=== PATIENT | male | born 1965 | race African-American/Black ===

== ENCOUNTER 2017-02-17 21:54 | Inpatient (IN) | payer OTHER, SELFPAY ==
[~2017-02-17] VITALS: Ht 182.9 cm; Wt 90.1 kg
[2017-02-17 22:29] LABS: ASPARTATE AMINO TRANSFERASE 40 U/L (15-37); BLOOD UREA NITROGEN 11 mg/dL (7-18)
[2017-02-17 22:35] LABS: IS PT STATUS REG ER OR PRE ER? YES
[2017-02-17] MEDS ORDERED: ASPIRIN 81 MG TABLET CHEW ONE (22:41)
[2017-02-17] MEDS ORDERED: NITROGLYCERIN OINT 2%, 1GM TP ONE ×2 (23:00→23:15)
[2017-02-17] MEDS ORDERED: ASPIRIN 81 MG TABLET CHEW PO ONE (23:00)
[2017-02-17] MEDS ORDERED: HEPARIN 5,000 UNITS/ML, 1ML IV PRN (23:30)
[2017-02-17] MEDS ORDERED: HEPARIN 25,000 UNITS/500ML PMX 500 ML IV PRN (23:30)
[2017-02-17] MEDS ORDERED: MORPHINE SULFATE 4 MG/ML, 1ML IVPush PRN (23:30)
[2017-02-17] MEDS ORDERED: HEPARIN 5,000 UNITS/ML, 1ML IV ONE (23:30)
[2017-02-17] MEDS ORDERED: ONDANSETRON 2MG/ML, 2ML IVPush PRN (23:30)
[2017-02-17] MEDS ORDERED: HEPARIN 5,000 UNITS/ML, 1ML ONE (23:45)
[2017-02-17] MEDS ORDERED: HEPARIN 25,000 UNITS/500ML PMX 500 ML ONE (23:45)
[2017-02-17] MEDS ORDERED: ONDANSETRON 2MG/ML, 2ML ONE (23:54)
[2017-02-17] MEDS ORDERED: MORPHINE SULFATE 4 MG/ML, 1ML ONE (23:54)
[2017-02-18 00:49] VITALS: BP 118/79
[2017-02-18] MEDS ORDERED: NITROGLYCERIN 0.4 MG BOTTLE (25 TABS) SL ONE (01:58)
[2017-02-18] MEDS ORDERED: ONDANSETRON 2MG/ML, 2ML IVPush PRN (02:30)
[2017-02-18] MEDS ORDERED: NICOTINE 14MG/24 HR PATCH.TD24 TD SCH (02:30)
[2017-02-18] MEDS ORDERED: POLYETHYLENE GLYCOL 17 GM PACKET PO PRN (02:30)
[2017-02-18] MEDS ORDERED: BISACODYL 10 MG SUPP PR PRN (02:30)
[2017-02-18] MEDS ORDERED: DOCUSATE 100 MG CAPSULE PO PRN (02:30)
[2017-02-18] MEDS ORDERED: TRAZODONE 50MG TABLET PO PRN (02:30)
[2017-02-18] MEDS ORDERED: hydrALAzine 20 MG/ML, 1ML IVPush PRN (02:30)
[2017-02-18] MEDS ORDERED: ACETAMINOPHEN 325 MG TABLET PO PRN (02:30)
[2017-02-18] MEDS: SODIUM CHLORIDE 0.9% 1,000 ML IV SCH ×2 (02:31→09:41)
[2017-02-18] MEDS: HYDROcodone/APAP 5/325 TABLET PO PRN ×2 (02:32→09:51)
[2017-02-18 02:37] VITALS: BP 119/67
[2017-02-18] MEDS ORDERED: ATORVASTATIN 80 MG TABLET PO SCH (03:00)
[2017-02-18 06:05] LABS: HIV 1&2 ANTIBODY SCREEN Nonreactive (Nonreactive); HIV-1 p24 ANTIGEN Nonreactive (Nonreactive)
[2017-02-18 06:07] LABS: BLOOD UREA NITROGEN 13 mg/dL (7-18)
[2017-02-18 06:14] LABS: ASPARTATE AMINO TRANSFERASE 32 U/L (15-37)
[2017-02-18 06:20] LABS: IS PT STATUS REG ER OR PRE ER? NO
[2017-02-18 07:06] VITALS: BP 107/72
[2017-02-18] MEDS ORDERED: ASPIRIN 81 MG TABLET CHEW PO SCH (09:00)
[2017-02-18] MEDS ORDERED: THIAMINE 100MG TABLET PO SCH (09:00)
[2017-02-18] MEDS ORDERED: FOLIC ACID 1 MG TABLET PO SCH (09:00)
[2017-02-18] MEDS ORDERED: REGADENOSON 0.4 MG/5 ML SYRINGE ONE (10:53)
[2017-02-18 11:08] LABS: HEPATITIS C VIRUS ANTIBODY Nonreactive (Nonreactive)
[2017-02-18 12:48] LABS: IS PT STATUS REG ER OR PRE ER? NO
[2017-02-18] MEDS ORDERED: TAMSULOSIN 0.4 MG CAP.ER.24H PO SCH (14:00)
[2017-02-18] MEDS ORDERED: IBUP800T PO (14:36)
[2017-02-18] MEDS ORDERED: ATOR10TA9 PO (14:36)
[2017-02-18] MEDS ORDERED: TAMS-11 PO (14:36)
[2017-02-18] MEDS ORDERED: FOLI-17 PO (14:36)
[2017-02-18] MEDS ORDERED: METO25TA35 PO (14:36)
[2017-02-18] MEDS ORDERED: ASPI-515 PO (14:36)
[2017-02-18 14:49] VITALS: BP 100/66
== END 2017-02-18 16:45 | disposition home or self-care (01) | DRG 281 ==
LOC: ED 22:12 → EDIP 23:10 → 5SO 02-18 00:51
PROVIDERS: ADMIT Internal Medicine; ATTEND Family Medicine
PROC: 0T9B70Z Drainage of Bladder with Drainage Device, Via Natural or Artificial Opening (ICD-10-PCS; principal; 2017-02-18)
DX: I21.4 Non-ST elevation (NSTEMI) myocardial infarction (principal); F11.23 Opioid dependence with withdrawal; E87.1 Hypo-osmolality and hyponatremia; F17.210 Nicotine dependence, cigarettes, uncomplicated; F19.10 Other psychoactive substance abuse, uncomplicated; F10.10 Alcohol abuse, uncomplicated; K59.00 Constipation, unspecified; Z83.3 Family history of diabetes mellitus
CPT/HCPCS: 36415; 74022; 78452; 80053; 80074; 81003; 83735; 84439; 84443; 84484; 85025; 85520; 85610; 85730; 86703; 87899; 93005; 93017; 93306; 96374; 96375; J1644; J2405; J2785; A9502; C9898; G0435; J7030

== ENCOUNTER 2017-10-01 11:05 | Inpatient (IN) | payer OTHER ==
[~2017-10-01] VITALS: Ht 172.7 cm; Wt 79.1 kg
[~2017-10-01 11:05] MED LIST: ASPI-515 PO; ATOR10TA9 PO; FOLI-17 PO; IBUP-1223 PO; METO25TA35 PO; TAMS-11 PO
[2017-10-01] MEDS ORDERED: ASPIRIN 81 MG TABLET CHEW ONE (11:41)
[2017-10-01] MEDS ORDERED: SODIUM CHLORIDE FLUSH 10ML SYR IVF ONE (12:00)
[2017-10-01] MEDS ORDERED: ASPIRIN 81 MG TABLET CHEW PO ONE (12:00)
[2017-10-01 12:16] LABS: BASOPHILS # (AUTO) 0.02 x10^3/uL (0-0.1); BASOPHILS % (AUTO) 0 % (0-1); EOSINOPHILS # (AUTO) 0.24 x10^3/uL (0-0.4); EOSINOPHILS % (AUTO) 4 % (1-7); LYMPHOCYTES # (AUTO) 1.74 x10^3/uL (1-3.4); LYMPHOCYTES % (AUTO) 30 % (22-44); MD NO; MEAN CORPUSCULAR HGB CONC 33.3 g/dL (33.2-36.2); MEAN PLATELET VOLUME 9.1 fL (7.4-10.4); MONOCYTES # (AUTO) 0.51 x10^3/uL (0.2-0.8); MONOCYTES % (AUTO) 9 % (2-9); NEUTROPHILS # (AUTO) 3.38 x10^3/uL (1.8-6.8); NEUTROPHILS % (AUTO) 57 % (42-75); PLATELET COUNT 175 x10^3/uL (130-400); RED BLOOD COUNT 4.41 x10^6/uL (4.38-5.82); RED CELL DISTRIBUTION WIDTH 14.8 % (9.4-14.8)
[2017-10-01 12:28] LABS: ALBUMIN 3.6 g/dL (3.4-5.0); ANION GAP 5 mmol/L (5-15); CALCIUM 8.7 mg/dL (8.5-10.1); CHLORIDE 108 mmol/L (98-107)
[2017-10-01 12:33] LABS: ALANINE AMINOTRANSFERASE 40 U/L (12-78); ALKALINE PHOSPHATASE 61 U/L (45-117); BILIRUBIN,TOTAL 1.1 mg/dL (0.2-1.0); CREATININE 1.09 mg/dL (0.7-1.3); TOTAL PROTEIN 7.5 g/dL (6.4-8.2)
[2017-10-01 12:37] LABS: TROPONIN I 0.383 ng/mL (0.000-0.045)
[2017-10-01] MEDS ORDERED: SODIUM CHLORIDE 0.9% 1,000 ML IV ONE (13:33)
[2017-10-01] MEDS ORDERED: SODIUM CHLORIDE FLUSH 10ML SYR IVF PRN ×2 (14:00)
[2017-10-01] MEDS ORDERED: BISACODYL 10 MG SUPP PR PRN (15:30)
[2017-10-01] MEDS ORDERED: ONDANSETRON 2MG/ML, 2ML IVPush PRN (15:30)
[2017-10-01] MEDS ORDERED: POLYETHYLENE GLYCOL 17 GM PACKET PO PRN (15:30)
[2017-10-01] MEDS ORDERED: hydrALAzine 20 MG/ML, 1ML IVPush PRN (15:30)
[2017-10-01] MEDS ORDERED: ENALAPRILAT 1.25 MG/ML, 2ML IVPush PRN (15:30)
[2017-10-01 15:43] VITALS: BP 120/78
[2017-10-01 16:08] LABS: HEMOGLOBIN A1C 5.8 % (4.2-6.3)
[2017-10-01 16:10] LABS: FREE T4 (FREE THYROXINE) 0.87 ng/dL (0.76-1.46); THYROID STIMULATING HORMONE 0.966 mIU/L (0.358-3.740)
[2017-10-01] MEDS: CYCLOBENZAPRINE 10 MG TABLET PO SCH ×2 (16:11→20:43)
[2017-10-01] MEDS: ACETAMINOPHEN 325 MG TABLET PO PRN (16:12)
[2017-10-01] MEDS: morphine SULFATE 10 MG/ML, 1ML IVPush PRN ×4 (16:13→23:06)
[2017-10-01] MEDS: HEPARIN 5,000 UNITS/ML, 1ML SQ SCH ×2 (16:23→23:06)
[2017-10-01] MEDS: SODIUM CHLORIDE 0.9% 1,000 ML IV SCH (16:27)
[2017-10-01 16:36] VITALS: BP 117/74
[2017-10-01 16:59] VITALS: BP 109/72
[2017-10-01] MEDS ORDERED: CHOL500050 PO (18:34)
[2017-10-01] MEDS ORDERED: OLAN5TAB9 PO (18:34)
[2017-10-01] MEDS ORDERED: OMEP-110 PO (18:34)
[2017-10-01] MEDS ORDERED: SIME80TA15 PO (18:34)
[2017-10-01] MEDS ORDERED: ATOR20TA9 PO (18:35)
[2017-10-01] MEDS ORDERED: OLAN10TA9 PO (18:35)
[2017-10-01] MEDS ORDERED: ACET650S21 PO (18:35)
[2017-10-01] MEDS ORDERED: DOCU100C33 PO (18:35)
[2017-10-01 18:56] VITALS: BP 108/71
[2017-10-01 19:21] LABS: TROPONIN I 0.359 ng/mL (0.000-0.045)
[2017-10-01 22:32] LABS: MICROSCOPIC NOT IND
[2017-10-01 22:44] LABS: CULTURE INDICATED? NO
[2017-10-02] VITALS: BP 116/67
[2017-10-02] MEDS ORDERED: OLANZAPINE 10 MG TABLET PO SCH
[2017-10-02 01:04] LABS: TROPONIN I 0.354 ng/mL (0.000-0.045)
[2017-10-02] MEDS: morphine SULFATE 10 MG/ML, 1ML IVPush PRN (01:19)
[2017-10-02] MEDS: SODIUM CHLORIDE 0.9% 1,000 ML IV SCH ×2 (02:54→10:52)
[2017-10-02] MEDS: ACETAMINOPHEN 325 MG TABLET PO PRN (04:50)
[2017-10-02 04:59] LABS: BASOPHILS # (AUTO) 0.03 x10^3/uL (0-0.1); BASOPHILS % (AUTO) 1 % (0-1); EOSINOPHILS # (AUTO) 0.28 x10^3/uL (0-0.4); EOSINOPHILS % (AUTO) 5 % (1-7); LYMPHOCYTES # (AUTO) 2.46 x10^3/uL (1-3.4); LYMPHOCYTES % (AUTO) 40 % (22-44); MD NO; MEAN CORPUSCULAR HEMOGLOBIN 32.2 pg (27.5-34.5); MEAN CORPUSCULAR HGB CONC 33.5 g/dL (33.2-36.2); MEAN CORPUSCULAR VOLUME 96.1 fL (81-97); MEAN PLATELET VOLUME 9.4 fL (7.4-10.4); MONOCYTES # (AUTO) 0.42 x10^3/uL (0.2-0.8); MONOCYTES % (AUTO) 7 % (2-9); NEUTROPHILS # (AUTO) 2.98 x10^3/uL (1.8-6.8); NEUTROPHILS % (AUTO) 48 % (42-75); PLATELET COUNT 155 x10^3/uL (130-400); RED BLOOD COUNT 4.16 x10^6/uL (4.38-5.82); RED CELL DISTRIBUTION WIDTH 14.7 % (9.4-14.8)
[2017-10-02 05:15] LABS: CHLORIDE 108 mmol/L (98-107)
[2017-10-02 05:25] LABS: ALANINE AMINOTRANSFERASE 32 U/L (12-78); ALBUMIN 3.2 g/dL (3.4-5.0); ALKALINE PHOSPHATASE 57 U/L (45-117); ANION GAP 7 mmol/L (5-15); BILIRUBIN,TOTAL 0.7 mg/dL (0.2-1.0); CALCIUM 7.8 mg/dL (8.5-10.1); CHOL/HDL RATIO 2.3; CHOLESTEROL, TOTAL 82 mg/dL (140-239); CREATININE 1.14 mg/dL (0.7-1.3); HDL CHOL % 44 % (26-37); HDL CHOLESTEROL (DIRECT) 36 mg/dL (40-60); LDL CHOLESTEROL,CALCULATED 35 mg/dL (54-169); TOTAL PROTEIN 6.7 g/dL (6.4-8.2); TRIGLYCERIDES 55 mg/dL (50-200); VLDL CHOLESTEROL 11 mg/dL (0-25)
[2017-10-02 07:11] VITALS: BP 101/64
[2017-10-02] MEDS ORDERED: GADOBUTROL 7.5 MMOL/7.5 ML PFS ONE (09:00)
[2017-10-02] MEDS: CYCLOBENZAPRINE 10 MG TABLET PO SCH ×3 (10:51→21:46)
[2017-10-02] MEDS: SENNA/DOCUSATE TABLET PO SCH (10:51)
[2017-10-02] MEDS: HEPARIN 5,000 UNITS/ML, 1ML SQ SCH ×2 (10:51→21:46)
[2017-10-02 15:07] VITALS: BP 108/69
[2017-10-02] MEDS: ERGOCALCIFEROL 50,000 UNIT CAPSULE PO SCH (16:46)
[2017-10-02] MEDS: SIMETHICONE 80 MG CHEW TAB PO SCH ×2 (16:47→21:45)
[2017-10-02] MEDS: OMEPRAZOLE 20 MG CAPSULE.DR PO SCH (16:47)
[2017-10-02 19:30] VITALS: BP 97/64
[2017-10-02] MEDS: ACETAMINOPHEN 650 MG/20.3 ML UDC PO SCH (21:44)
[2017-10-02] MEDS: ATORVASTATIN 20 MG TABLET PO SCH (21:45)
[2017-10-02] MEDS: OLANZAPINE 10 MG TABLET PO SCH (21:45)
[2017-10-03 03:17] VITALS: BP 100/60
[2017-10-03] MEDS: HEPARIN 5,000 UNITS/ML, 1ML SQ SCH ×4 (05:49→21:07)
[2017-10-03 06:53] VITALS: BP 99/57
[2017-10-03] MEDS: ERGOCALCIFEROL 50,000 UNIT CAPSULE PO SCH (09:49)
[2017-10-03] MEDS: SIMETHICONE 80 MG CHEW TAB PO SCH ×3 (09:49→21:08)
[2017-10-03] MEDS: ACETAMINOPHEN 650 MG/20.3 ML UDC PO SCH ×2 (09:49→21:07)
[2017-10-03] MEDS: SENNA/DOCUSATE TABLET PO SCH (09:49)
[2017-10-03] MEDS: CYCLOBENZAPRINE 10 MG TABLET PO SCH ×3 (09:50→21:08)
[2017-10-03] MEDS: DOCUSATE 100 MG CAPSULE PO SCH (09:50)
[2017-10-03] MEDS: OMEPRAZOLE 20 MG CAPSULE.DR PO SCH ×2 (09:50→17:26)
[2017-10-03 14:16] VITALS: BP 107/70
[2017-10-03 18:55] VITALS: BP 114/73
[2017-10-03] MEDS: ATORVASTATIN 20 MG TABLET PO SCH (21:08)
[2017-10-03] MEDS: OLANZAPINE 10 MG TABLET PO SCH (21:08)
[2017-10-04 02:42] VITALS: BP 124/74
[2017-10-04] MEDS: HEPARIN 5,000 UNITS/ML, 1ML SQ SCH ×2 (05:11→13:00)
[2017-10-04 06:46] VITALS: BP 102/65
[2017-10-04] MEDS: SIMETHICONE 80 MG CHEW TAB PO SCH (07:37)
[2017-10-04] MEDS: CYCLOBENZAPRINE 10 MG TABLET PO SCH (07:37)
[2017-10-04] MEDS: OMEPRAZOLE 20 MG CAPSULE.DR PO SCH (07:37)
[2017-10-04] MEDS: DOCUSATE 100 MG CAPSULE PO SCH (07:37)
[2017-10-04] MEDS: ACETAMINOPHEN 650 MG/20.3 ML UDC PO SCH (07:38)
[2017-10-04] MEDS: SENNA/DOCUSATE TABLET PO SCH (07:38)
[2017-10-04] MEDS ORDERED: POLY17PO5 PO (10:48)
[2017-10-04] MEDS ORDERED: CYCL-259 PO (10:48)
[2017-10-04 13:23] VITALS: BP 109/67
[2017-10-04] MEDS ORDERED: FLU VACC QS2017-18 (36MOS+) UP/PF 0.5 ML IM-VACC ONE (14:30)
== END 2017-10-04 16:55 | disposition home or self-care (01) | DRG 552 ==
LOC: ED 11:24 → EDIP 13:33 → 5SO 15:46 → 4EST 10-02 18:34
PROVIDERS: ADMIT Internal Medicine; ATTEND Internal Medicine
DX: M48.02 Spinal stenosis, cervical region (principal); F20.9 Schizophrenia, unspecified; W18.30XA Fall on same level, unspecified, initial encounter; E78.5 Hyperlipidemia, unspecified; G35 Multiple sclerosis; F39 Unspecified mood [affective] disorder; I25.2 Old myocardial infarction; I51.7 Cardiomegaly; M94.0 Chondrocostal junction syndrome [Tietze]; N40.0 Benign prostatic hyperplasia without lower urinary tract symptoms; Z79.82 Long term (current) use of aspirin; Z87.891 Personal history of nicotine dependence; R55 Syncope and collapse; Y93.89 Activity, other specified; Y92.89 Other specified places as the place of occurrence of the external cause; Y99.8 Other external cause status
CPT/HCPCS: 36415; 70551; 71045; 72156; 72157; 80053; 80061; 81003; 82306; 82607; 83036; 83735; 84439; 84443; 84484; 85025; 86703; 87899; 90686; 93005; 93306; 93880; 99285; A9585; J1644; G0435; J2270; J7030